=== PATIENT | female | born 1980 | race Caucasian/White ===

== ENCOUNTER → 2017-05-10 | Outpatient (CLI) | payer BC ==
[~2017-05-10] MED LIST: CALCTAB5 PO; CHOL1CAP27 PO; DOCO1CAP10 PO; FOLI20CA PO; PRENTAB26 PO
== END | disposition home or self-care (01) ==
LOC: C.PAPS 09:04
PROVIDERS: ATTEND Obstetrics & Gynecology
DX: Z01.419 Encounter for gynecological examination (general) (routine) without abnormal findings (principal); Z11.51 Encounter for screening for human papillomavirus (HPV)